=== PATIENT | female | born 1985 | race Caucasian/White ===

== ENCOUNTER 2024-07-08 08:53 | Emergency (ER) | payer OTHER, SELFPAY ==
[2024-07-08] VITALS (18 sets, daily range): BP systolic 114–172; BP diastolic 55–93; PULSE 116–143; RESP 16–36; TEMP 37.2; O2SAT 93–99; BMI 22.9
--- NOTE | 2024-07-08 09:04 | EKG_ITS ---
[address] [address] Test Date: 2024-07-08 Pat Name: Tamara Painter Department: Room: Gender: Female Professor Of Medicine: ANDRES : 1985 Requested By: Order Number: [id number] Reading MD: Joel Paredes MD Measurements Intervals [place] Rate: 120 P: 61 IN: 142 QRS: 16 QRSD: 64 T: 58 QT: 318 QTc: 449 Interpretive Statements Sinus tachycardia Biatrial enlargement Cannot rule out Anterior infarct , age undetermined NO PRIOR TRACING Electronically Signed On 07-08-2024 12:04:01 PST by Joel Paredes MD
--- NOTE | 2024-07-08 09:31 | DI.MRI.S_ITS ---
PROCEDURE: MR CERVICAL SPINE WO/W CON INDICATIONS: intractable DURAN, severe neck pain, cervical epidural recently TECHNIQUE: Noncontrast sagittal T1 spin echo and T2 fast spin echo, sagittal STIR, foraminal oblique sagittal T2 fast spin echo, axial gradient echo or T2 fast spin echo through the cervical spine. After the administration of contrast, axial and sagittal T1 spin echo with fat saturation through the cervical spine. COMPARISON: [facility], MR, MR HEAD/BRAIN WO/W CON, 07/08/2024, 10:09. [facility], MR, MR CERVICAL SPINE WITH/WITHOUT CONTRAST, 02/19/2024, 14:21. FINDINGS: Image quality: Diagnostic, with note made of motion artifact. Alignment and curvature: There is normal bony alignment. Marrow: There is stable abnormal marrow signal seen within the posterior superior aspect of the C4 vertebral body, with mild enhancement. No significant change can be seen compared to the prior MRI. No additional focal marrow signal abnormality can be seen. Spinal cord: Visualized spinal cord has normal size and signal. No cerebellar tonsillar herniation. No abnormal intramedullary enhancement. Paraspinous soft tissues: No paravertebral masses or suspicious enhancement. C2-3: Normal appearance. C3-4: The disc height and disk signal are well-preserved. Mild disc osteophyte complex is seen, which is eccentric to the left. There is mild left-sided and no right-sided neural foraminal narrowing. No central canal narrowing is seen. When comparison is made with the prior images, these findings are similar. C4-5: The disc height and disk signal are relatively well-preserved. A mild degree of generalized disc osteophyte complex is seen. There is mild right-sided and moderate left-sided facet hypertrophy. Mild bilateral neural foraminal narrowing is seen. Mild central canal narrowing is seen. No significant change from the prior. C5-6: Normal appearance. C6-7: Level within normal limits. C7-T1: The disc height and disk signal are well-preserved. A mild degree of generalized disc osteophyte complex is seen. There is mild right-sided and moderate left-sided facet hypertrophy. There is moderate left-sided and no right-sided neural foraminal narrowing. No central canal narrowing is seen. Stable from the prior study. IMPRESSION: No abnormal white marrow signal can be seen. No abnormal enhancement is seen. Cervical spine degenerative changes are seen, which are similar to the prior. The previously seen straightening of the normal cervical lordosis has now relaxed and the bony alignment is considered to be within normal limits. There is stable abnormal marrow signal within the C4 vertebral body. The imaging appearance is nonspecific, although please consider an atypical vertebral body hemangioma. Dictated by: Duran Fink M.D. on 07/08/2024 at 10:30 Approved by: Duran Fink M.D. on 07/08/2024 at 10:36
--- NOTE | 2024-07-08 09:31 | DI.MRI.S_ITS ---
PROCEDURE: MR HEAD/BRAIN WO/W CON INDICATIONS: intractable headache, pupil changes, h/o br CA, neurofibroma TECHNIQUE: Noncontrast axial T1 spin echo, axial T2 fast spin echo, sagittal and axial FLAIR, coronal T2 fast spin echo, axial gradient echo, axial diffusion and ADC through the brain. After the administration of contrast, axial and coronal and sagittal 3D VIBE or T1 spin echo with fat saturation through the brain. COMPARISON: [facility], MR, MR CERVICAL SPINE WITH/WITHOUT CONTRAST, 02/19/2024, 14:21. [facility], MR, MR CERVICAL SPINE WO/W CON, 07/08/2024, 10:09. FINDINGS: Image quality: This examination is limited by involuntary motion artifact. CSF Spaces: Basal cisterns are patent. No extra-axial fluid collections. Ventricles are normal in size and shape. Brain: There is abnormal signal seen within the corpus callosum, with abnormal white matter lesions, which are best seen on series 6, image 14, involving the body and the splenium of the corpus callosum. These areas do not enhance. Low signal can be seen on T1 weighted imaging within these areas. No other definite white matter lesions are seen. The brainstem and the cerebellum are within normal limits. No midline shift. No intracranial bleeds or masses. No abnormal intracranial enhancement. Diffusion-weighted images demonstrate no acute infarct. No chronic ischemic insults. Normal intravascular flow voids are present. Skull and face: Calvarial marrow is normal in signal. Orbits appear normal. Sinuses: Sinuses and mastoids appear clear. IMPRESSION: Abnormal signal seen within the corpus callosum, yet without abnormal enhancement. Given the appearance of the lesions and the age and gender of the patient, these are suspicious for a demyelinating process, including multiple sclerosis. No abnormal enhancement is seen. Dictated by: Duran Fink M.D. on 07/08/2024 at 10:36 Approved by: Duran Fink M.D. on 07/08/2024 at 10:39
--- NOTE | 2024-07-08 09:34 | ED_ITS ---
HPI - Headache General Chief Complaint: Headache Stated Complaint: Migraine Time Seen by Provider: 07/08/24 09:03 History of Present Illness HPI Narrative: 38-year-old woman presents complaining of intractable headache that she feels this is severe migraine. 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 She describes perhaps 1 headache free day per month. She has lost weight she continues to vomit she is having trouble with activities of daily living and has transportation issues, she is concerned that she has not safe to drive herself with her pain levels. She has not describing any acute vision changes and does not describe significant photosensitivity. No abdominal pain. No complaints of extremity paresthesia or localized weakness, global weakness is noted. Related Data Previous Rx's Medication Instructions Recorded amitriptyline 25 mg tablet 25 mg PO BEDTIME #60 tabs 07/08/24 Review of Systems Review of Systems Narrative: Pertinent positive and negative findings as per HPI Patient History Medical History (Updated 07/08/24 @ 13:24 by Laurel Fonseca MD) Chronic headache Neurofibromatosis Breast cancer Social History Smoking Status: Current some day smoker Smoking Status: Current some day smoker Exam Initial Vital Signs Initial Vital Signs: Vital Signs Pulse Rate 135 H 07/08/24 08:58 Blood Pressure 161/93 H 07/08/24 08:58 Pulse Oximetry 97 07/08/24 08:58 General: Chronically and acutely ill appearing 38-year-old woman, much older than stated age. HEENT: Dry mucous membranes, unremarkable sclera, right pupil is more dilated than the left and minimally reactive. No acute visual changes Neck: Tenderness along the entire cervical spine and pain is significant enough that forward flexion is not possible Respiratory: Lungs are clear to auscultation, no wheezing no rales no rhonchi. Full and symmetrical air movement Cardiac: Significant tachycardia without murmur Abdomen: Soft, mild diffuse tenderness without any localizing findings. No flank pain Skin: Pale, overall perfusion is poor, scattered neurofibromas appreciated Neurologic: Anisocoria, severe neck pain, no extremity weakness or other localizing symptoms Extremities: Overall poorly perfused Psych: Cooperative, very anxious Course Orders Ordered: ED Orders 07/08/24 09:04 EKG-12 Lead Stat 07/08/24 09:05 CRP [C-Reactive Protein Quant] Stat Complete Blood Count AUTO DIFF Stat Comprehensive Metabolic Panel Stat Erythrocyte Sedimentation Rate Stat Lactate (Lactic Acid) Urgent 07/08/24 09:31 MR cervical spine wo/w con Stat MR head/brain wo/w con Stat 07/08/24 09:37 Ictotest Urine Stat Urinalysis and Microscopic Stat Urine Culture Stat Lorazepam (Lorazepam 2 Mg/Ml Inj) 1 mg IV NOW PRN PRN Reason: anxiety' Discontinued Medications Dexamethasone (Dexamethasone 10 Mg/Ml Vial) 10 mg IV NOW ONE Stop: 07/08/24 09:32 Last Admin: 07/08/24 10:06 Dose: 10 mg Documented By: CTS Diphenhydramine HCl (Diphenhydramine 50 Mg/Ml Vial) 25 mg IV NOW ONE Stop: 07/08/24 09:32 Last Admin: 07/08/24 10:06 Dose: 25 mg Documented By: CTS Sodium Chloride (Normal Saline 0.9%) 1,000 mls @ 1,000 mls/hr IV BOLUS ONE Stop: 07/08/24 10:30 Last Infusion: 07/08/24 11:14 Dose: 1,000 mls/hr Documented By: Infusion: 07/08/24 10:07 Dose: 0 mls/hr Documented By: Admin: 07/08/24 10:06 Dose: 1,000 mls/hr Documented By: CTS Lorazepam (Lorazepam 2 Mg/Ml Inj) 1 mg IV NOW ONE Stop: 07/08/24 09:44 Last Admin: 07/08/24 10:06 Dose: 1 mg Documented By: CTS Prochlorperazine (Prochlorperazine 10 Mg/2 Ml Vial) 10 mg IV NOW ONE Stop: 07/08/24 09:32 Last Admin: 07/08/24 10:05 Dose: 10 mg Documented By: CTS Vital Signs Vital signs: Vital Signs - 8 hr 07/08/24 08:58 07/08/24 08:58 07/08/24 09:00 Temperature Pulse Rate 135 H Respiratory Rate Blood Pressure 161/93 H 150/83 H Pulse Oximetry 97 Oxygen Delivery Method 07/08/24 09:00 07/08/24 09:01 07/08/24 09:30 Temperature 98.9 F Pulse Rate 133 H 135 H 143 H Respiratory Rate 20 36 H Blood Pressure 150/83 H Pulse Oximetry 98 99 Oxygen Delivery Method Room Air 07/08/24 09:34 07/08/24 09:35 07/08/24 09:35 Temperature Pulse Rate 135 H 134 H Respiratory Rate 31 H 28 H Blood Pressure 161/83 H Pulse Oximetry 97 Oxygen Delivery Method 07/08/24 10:00 07/08/24 10:01 07/08/24 10:01 Temperature Pulse Rate 137 H 131 H Respiratory Rate 16 23 Blood Pressure 172/82 H Pulse Oximetry 97 97 Oxygen Delivery Method 07/08/24 10:05 07/08/24 11:09 07/08/24 11:11 Temperature Pulse Rate 135 H 120 H Respiratory Rate Blood Pressure 170/81 H 123/68 Pulse Oximetry 97 Oxygen Delivery Method 07/08/24 11:11 07/08/24 11:30 07/08/24 11:30 Temperature Pulse Rate 121 H 121 H Respiratory Rate Blood Pressure 114/55 L Pulse Oximetry 94 93 Oxygen Delivery Method 07/08/24 12:00 07/08/24 12:00 07/08/24 12:30 Temperature Pulse Rate 116 H Respiratory Rate Blood Pressure 119/69 125/65 Pulse Oximetry 95 Oxygen Delivery Method 07/08/24 12:30 Temperature Pulse Rate 120 H Respiratory Rate Blood Pressure Pulse Oximetry 95 Oxygen Delivery Method Room Air MDM - Headache Lab Data 07/08/24 09:05 07/08/24 09:05 Labs: Lab Results 07/08/24 07/08/24 Range/Units 09:05 09:37 WBC 9.1 (4.5-11.0) X10^3/uL RBC 5.05 (4.0-5.2) X10^6/uL Hgb 15.6 (12.0-16.0) g/dL Hct 45.5 (36-46) % MCV 90.1 (80-100) fL MCH 30.9 (26-34) PG MCHC 34.3 (30-36) % RDW 13.2 (11.6-14.8) % Plt Count 350 (150-400) X10^3/uL Neut % (Auto) 80.3 H (50-75) % Lymph % (Auto) 9.8 L (25-40) % [place] % (Auto) 7.2 (3-14) % Eos % (Auto) 1.6 L (2-4) % Baso % (Auto) 1.1 (0-2) % Neut # (Auto) 7300 H (9542-1909) /uL Lymph # (Auto) 900 L (5401-7747) /uL [place] # (Auto) 700 (0-900) /uL Eos # (Auto) 100 (0-450) /uL Baso # (Auto) 100 (0-100) /uL ESR 3 (0-20) MM/HR Sodium 138 (137-145) mmol/L Potassium 4.6 (3.4-5.1) mmol/L Chloride 104 (98-107) mmol/L Carbon Dioxide 25 (22-32) mmol/L BUN 12 (7-17) mg/dL Creatinine 0.65 (0.52-1.04) mg/dL Estimated GFR > 60 (>60) mL/min BUN/Creatinine Ratio 18.5 (6-22) Glucose 115 H (70-100) mg/dL Lactate 1.4 (0.7-2.1) mmol/L Calcium 9.2 (8.4-10.2) mg/dL Total Bilirubin 0.8 (0.2-1.3) mg/dL AST 40 H (14-36) IU/L ALT 30 (<35) IU/L Alkaline Phosphatase 74 (38-126) U/L C-Reactive Protein < 0.5 (<1.0) mg/dL Total Protein 8.0 (6.3-8.2) g/dL Albumin 5.0 (3.5-5.0) g/dL Globulin 3.0 (1.7-4.1) g/dL Albumin/Globulin Ratio 1.7 (1.0-2.8) Urine Color Yellow Urine Appearance Sl cloudy Urine pH 6.0 (4.5-8.0) Ur Specific [place] >=1.030 H (1.000-1.035) Urine Protein 1+ H (Negative) Urine Glucose (UA) Negative (Negative) g/dL Urine Ketones Trace H (NEGATIVE) Urine Occult Blood Negative (Negative) Urine Nitrate Negative (Negative) Urine Bilirubin 1+ H (NEGATIVE) Ur Bilirubin Confirm Negative (Negative) Urine Urobilinogen 1.0 (0.2) E.U./dL Ur Leukocyte Esterase Negative (NEGATIVE) Urine RBC None seen (0-5/HPF) Urine WBC 5-10/hpf H (0-5/HPF) Ur Squamous Epith Cells 5-10 /hpf H (0-5/HPF) Urine Bacteria None seen (None) Ur Culture Indicated? Specimen cultured Vol Urine Centrifuged 10ml (spun) Point of Care Testing Test Results Negative Urine Dip Bedside Urine Glucose Negative Bedside Urine Bilirubin - Negative Bedside Urine Ketone - Negative Urine Specific [place] 1.030 Bedside Urine Occult Blood +/- Bedside Urine pH 6.0 Bedside Urine Protein + 30 Bedside Urine Urobilinogen - Negative Bedside Urine Nitrite - Negative Bedside Urine Leukocytes - Negative Esterase Imaging Data MR brain and cervical spine: Radiologist's Impression: PROCEDURE: MR HEAD/BRAIN WO/W CON INDICATIONS: intractable headache, pupil changes, h/o br CA, neurofibroma TECHNIQUE: Noncontrast axial T1 spin echo, axial T2 fast spin echo, sagittal and axial FLAIR, coronal T2 fast spin echo, axial gradient echo, axial diffusion and ADC through the brain. After the administration of contrast, axial and coronal and sagittal 3D VIBE or T1 spin echo with fat saturation through the brain. COMPARISON: [facility], MR, MR CERVICAL SPINE WITH/WITHOUT CONTRAST, 02/19/2024, 14:21. [facility], MR, MR CERVICAL SPINE WO/W CON, 07/08/2024, 10:09. FINDINGS: Image quality: This examination is limited by involuntary motion artifact. CSF Spaces: Basal cisterns are patent. No extra-axial fluid collections. Ventricles are normal in size and shape. Brain: There is abnormal signal seen within the corpus callosum, with abnormal white matter lesions, which are best seen on series 6, image 14, involving the body and the splenium of the corpus callosum. These areas do not enhance. Low signal can be seen on T1 weighted imaging within these areas. No other definite white matter lesions are seen. The brainstem and the cerebellum are within normal limits. No midline shift. No intracranial bleeds or masses. No abnormal intracranial enhancement. Diffusion-weighted images demonstrate no acute infarct. No chronic ischemic insults. Normal intravascular flow voids are present. Skull and face: Calvarial marrow is normal in signal. Orbits appear normal. Sinuses: Sinuses and mastoids appear clear. IMPRESSION: Abnormal signal seen within the corpus callosum, yet without abnormal enhancement. Given the appearance of the lesions and the age and gender of the patient, these are suspicious for a demyelinating process, including multiple sclerosis. No abnormal enhancement is seen. Dictated by: Duran Fink M.D. on 07/08/2024 at 10:36 PROCEDURE: MR CERVICAL SPINE WO/W CON INDICATIONS: intractable DURAN, severe neck pain, cervical epidural recently TECHNIQUE: Noncontrast sagittal T1 spin echo and T2 fast spin echo, sagittal STIR, foraminal oblique sagittal T2 fast spin echo, axial gradient echo or T2 fast spin echo through the cervical spine. After the administration of contrast, axial and sagittal T1 spin echo with fat saturation through the cervical spine. COMPARISON: [facility], MR, MR HEAD/BRAIN WO/W CON, 07/08/2024, 10:09. [facility], MR, MR CERVICAL SPINE WITH/WITHOUT CONTRAST, 02/19/2024, 14:21. FINDINGS: Image quality: Diagnostic, with note made of motion artifact. Alignment and curvature: There is normal bony alignment. Marrow: There is stable abnormal marrow signal seen within the posterior superior aspect of the C4 vertebral body, with mild enhancement. No significant change can be seen compared to the prior MRI. No additional focal marrow signal abnormality can be seen. Spinal cord: Visualized spinal cord has normal size and signal. No cerebellar tonsillar herniation. No abnormal intramedullary enhancement. Paraspinous soft tissues: No paravertebral masses or suspicious enhancement. C2-3: Normal appearance. C3-4: The disc height and disk signal are well-preserved. Mild disc osteophyte complex is seen, which is eccentric to the left. There is mild left-sided and no right- sided neural foraminal narrowing. No central canal narrowing is seen. When comparison is made with the prior images, these findings are similar. C4-5: The disc height and disk signal are relatively well-preserved. A mild degree of generalized disc osteophyte complex is seen. There is mild right-sided and moderate left-sided facet hypertrophy. Mild bilateral neural foraminal narrowing is seen. Mild central canal narrowing is seen. No significant change from the prior. C5-6: Normal appearance. C6-7: Level within normal limits. C7-T1: The disc height and disk signal are well-preserved. A mild degree of generalized disc osteophyte complex is seen. There is mild right-sided and moderate left- sided facet hypertrophy. There is moderate left-sided and no right-sided neural foraminal narrowing. No central canal narrowing is seen. Stable from the prior study. IMPRESSION: No abnormal white marrow signal can be seen. No abnormal enhancement is seen. Cervical spine degenerative changes are seen, which are similar to the prior. The previously seen straightening of the normal cervical lordosis has now relaxed and the bony alignment is considered to be within normal limits. There is stable abnormal marrow signal within the C4 vertebral body. The imaging appearance is nonspecific, although please consider an atypical vertebral body hemangioma. Dictated by: Duran Fink M.D. on 07/08/2024 at 10:30 MDM Narrative Medical decision making narrative: CC: Intractable headache Complicating co-morbidities: High-risk breast cancer, post mastectomy, neurofibromatosis with reports of optic nerve lesion, chronic headache with less than 1 day of headache free time per month, recent significant C-spine injection with epidural injection exacerbating all symptoms approximately 8 weeks ago, significant anxiety Data collected from: patient Social determinants of health that may influence the patients condition: Significant anxiety, sounds like her primary care physician has been working on decreasing oxycodone as well as diazepam dosing over the last year to 6 months(no acute changes in the last 1 month), transportation is difficult, childcare stressors Medical records reviewed: None available, majority of care is through [facility] Differential considered: Migraine, meningitis, intracranial tumor or mass including possibility of metastatic breast cancer or new neurofibroma, cervical spine epidural abscess Exam documented above, pertinent findings include: Anxiety, significant pain, anisocoria right pupil larger and less responsive. Tachycardic, lungs are clear she does not have an acute surgical abdomen, overall perfusion appears decreased Lab Test results independently reviewed as above. Pertinent findings: CBC shows no leukocytosis, moderate increase in neutrophils at 83%. No anemia Chemistries are unremarkable C-reactive protein is not elevated Lactic acid is not elevated Urine appears to be significantly dehydrated doubt UTI Independently reviewed EKG: Sinus tachycardia at a rate of 120. Prominent T-waves. No acute ischemia Imaging studies independently reviewed: MRI with and without of the cervical spine shows no acute findings that would exchange worsening pathology. There is a mention of a stable abnormal marrow signal within the C4 vertebral body unchanged from prior scans MRI of the brain with abnormal signal seen within the corpus callosum, with abnormal white matter lesions, which are best seen on series 6, image 14, involving the body and the splenium of the corpus callosum. These areas do not enhance. Given the appearance of the lesions and the age and gender of the patient, these are suspicious for a demyelinating process, including multiple sclerosis. Consultations: neurology. MRI studies have been pushed to , Dr Kavon Cornell. Did not feel like acute intervention was required. Not obvious diagnosostic criteria for MS, 2 abnormal non-enhancing lesions in callosum were again noted. Treatments: Compazine, Benadryl, dexamethasone, saline, Ativan Re-evaluations: Patient is re-evaluated after her MR studies. She states she is feeling much better, headache has essentially resolved. She is resting comfortably still significantly tachycardic at 133 Discussion: 38-year-old woman with multiple significant diagnosis for the age 39 including her metastatic breast cancer neurofibromatosis, chronic migraine/daily headache with minimal relief from pain, recent traumatic cervical spine injury chronic neck pain now exacerbating her headaches in today with MRI of the brain suggesting possible demyelinating process including multiple sclerosis. Her headache has improved with fluids, Compazine, Benadryl and Ativan which was used for sedation for her MR studies. She remains significantly tachycardic without evidence of infection, acute coronary syndrome, dehydration or acute anemia. Further questioning, patient notes that she is taking large amounts of [id number] medications to combat her headaches. We talked about rebound headaches in the importance of avoiding donh-hwt-ppfufal medications at this point. She is tried Topamax which was ineffective, Cymbalta caused her hair to fall out she had been seeing a headache specialist when she lived in [place] and Botox injections has been helpful. She has recently been referred to pain management clinic with no additional discussion of headaches. We talked about trying amitriptyline while also stopping all [id number] medications and she was willing to give this a try. Alternatives, benefits, risks side effects of amitriptyline reviewed in detail with the patient. She will be given copies of her MRI results to share with her primary care physician I have encouraged her to talk with her primary care physician, try the amitriptyline and ask for a referral for headache management/consultation. She is safe for discharge Discharge Plan Departure Patient Disposition: Home Clinical Impression: Chronic daily headache Migraine Qualifiers: Migraine type: chronic migraine (15 or more days per month) without aura Status migrainosus presence: with status migrainosus Intractability: not intractable Q ualified Code(s): G43.701 - Chronic migraine without aura, not intractable, with status migrainosus Instructions: DI for Migraine Activity Restrictions/Additional Instructions: Thank you for coming in today Because of severity of your headache, a full workup was done. There was no sign of bacterial infection, meningitis, sepsis. We did MRIs of your brain and cervical spine which did not show dramatic acute findings such as a tumor or neurofibroma that would need immediate attention or cause her symptoms. There was mentioned of 2 small areas in the center portion of your brain that likely have been there for an extended period of time and are incidental findings. There was a question of whether these could be concerning for multiple sclerosis. I did review the studies with Neurology specialist at the [facility]. He did not feel that your MRIs are showing multiple sclerosis. We talked about your chronic headaches. At this point you have changed from migraine headache to chronic daily headaches likely rebound headache secondary to all of the etqh-vjo-wgfyhdb medications that you are taking. I am going to suggest that you completely stop all vjir-axa-nhsyymg medications for headache treatment, you have already noticed they are not helpful. I am also going to suggest you begin a medication called amitriptyline, 25 mg about 2 hours before bed. This medication can help prevent migraines as well as treat chronic pain. It will make you sleepy which is why taking it about 2 hours before you go to sleep will prevent some of the daytime sleepiness. It will give you a dry mouth, it can increase your appetite so do be aware of that. You need to try it for full 6 weeks before you decide if it has been helpful or not Amitriptyline prescription is electronically sent to [facility] in [place]. You need to follow up with your primary care physician. If you have not yet seen a headache specialist here in [facility] for management of your headaches, I would recommend that you ask for referral to do so Make sure that you are drinking plenty of water, avoiding caffeine and sugar can all be helpful in decreasing migraine triggers If you find that you are getting worse or develop any new symptoms, please feel free to return to the emergency department for further evaluation. Prescriptions: New amitriptyline 25 mg tablet 25 mg PO BEDTIME Qty: 60 0RF Referrals: ProviderAmmy [Primary Care Provider] - Stand Alone Forms: Patient Portal/API/Survey
[2024-07-08 09:48] LABS: Add Manual Diff / Slide Review NO; Basophils Absolute Auto 100 /uL (0-100); Basophils Percent Auto 1.1 % (0-2); Eosinophils Absolute Auto 100 /uL (0-450); Eosinophils Percent Auto 1.6 % (2-4); Hematocrit 45.5 % (36-46); Hemoglobin 15.6 g/dL (12.0-16.0); Lymphocytes Absolute Auto 900 /uL (1100-4500); Lymphocytes Percent Auto 9.8 % (25-40); Mean Corpuscular HGB Conc 34.3 % (30-36); Mean Corpuscular Hemoglobin 30.9 PG (26-34); Mean Corpuscular Volume 90.1 fL (80-100); Monocytes Absolute Auto 700 /uL (0-900); Monocytes Percent Auto 7.2 % (3-14); Neutrophils Absolute Auto 7300 /uL (1500-7000); Neutrophils Percent Auto 80.3 % (50-75); Platelet Count 350 X10^3/uL (150-400); Red Blood Cell Count 5.05 X10^6/uL (4.0-5.2); Red Cell Distribution Width 13.2 % (11.6-14.8); White Blood Cell Count 9.1 X10^3/uL (4.5-11.0)
[2024-07-08 09:49] LABS: Appearance Urine UA SL CLOUDY; Bilirubin Urine UA 1+ (NEGATIVE); Color Urine UA YELLOW; Glucose Urine UA NEGATIVE (Negative); Ketones Urine UA TRACE (NEGATIVE); Leukocyte Esterase Urine UA NEGATIVE (NEGATIVE); Nitrite Urine UA NEGATIVE (Negative); Occult Blood Urine UA NEGATIVE (Negative); Protein Urine UA 1+ (Negative); Specific Gravity Urine UA >=1.030 (1.000-1.035)
[2024-07-08 09:54] LABS: Lactate (Lactic Acid) 1.4 mmol/L (0.7-2.1)
[2024-07-08 09:56] LABS: Ictotest Urine Negative (Negative); Urine Volume 10mL (spun)
[2024-07-08 09:56] LABS: Alanine Aminotransferase 30 IU/L (<35); Albumin Globulin Ratio 1.7 (1.0-2.8); Alkaline Phosphatase 74 U/L (38-126); Aspartate Aminotransferase 40 IU/L (14-36); BUN Creatinine Ratio 18.5 (6-22); Bilirubin Total 0.8 mg/dL (0.2-1.3); Blood Urea Nitrogen 12 mg/dL (7-17); C-Reactive Protein Quant < 0.5 mg/dL (<1.0); Calcium 9.2 mg/dL (8.4-10.2); Carbon Dioxide 25 mmol/L (22-32); Chloride 104 mmol/L (98-107); Estimated Glomerular Filt Rate > 60 mL/min (>60); Glucose 115 mg/dL (70-100); HEMOLYSIS 21 (0-50); Potassium 4.6 mmol/L (3.4-5.1); Sodium 138 mmol/L (137-145)
[2024-07-08 09:57] LABS: Bacteria Urine None Seen; Culture Indicated Urine Specimen Cultured; RBC Urine None Seen (0-5/HPF); Squamous Epithelial Cell Urine 5-10 /HPF (0-5/HPF); WBC Urine 5-10/HPF (0-5/HPF)
[2024-07-08] MEDS: PROCHLORPERAZINE 10 MG/2 ML VIAL IV (10:05)
[2024-07-08] MEDS: SODIUM CHLORIDE 0.9% 1,000 ML 1000 ML IV (10:06)
[2024-07-08] MEDS: LORazepam 2 MG/ML INJ 1 MG IV (10:06)
[2024-07-08] MEDS: diphenhydrAMINE 50 MG/ML VIAL 25 MG IV (10:06)
[2024-07-08] MEDS: DEXAMETHASONE 10 MG/ML VIAL IV (10:06)
[2024-07-08 10:10] LABS: Erythrocyte Sedimentation Rate 3 MM/HR (0-20)
--- NOTE | 2024-07-08 10:14 | PC.NURSE ---
Pt off floor at this time for MRI. fluids paused.
== END 2024-07-08 15:59 | disposition home or self-care (01) ==
PROVIDERS: Emergency Provider Emergency Medicine; Referring Provider Emergency Medicine
DX: G43.701 Chronic migraine without aura, not intractable, with status migrainosus (principal)
CPT/HCPCS: 70553; 72156; 80053; 81001; 81003; 81025; 83605; 85025; 85651; 86140; 87086; 93005; 93010; 96361; 96374; 96375; 99284; A9579; J0780; J1100; J1200; J2060

== ENCOUNTER 2024-12-19 20:19 | Emergency (ER) | payer OTHER, SELFPAY ==
[2024-12-19 20:35] VITALS: BP 137/94; PULSE 125; RESP 14; TEMP 36.5; O2SAT 98; BMI 24.0
[2024-12-19 21:08] LABS: Bacteria Urine Few (2-10); Culture Indicated Urine Cult Not Indicated; Mucus Urine 2+ (Negative); RBC Urine 0-1/HPF (0-5/HPF); Squamous Epithelial Cell Urine 1-5 /HPF (0-5/HPF); Urine Volume 10mL (spun); WBC Urine 0-1/HPF (0-5/HPF)
--- NOTE | 2024-12-19 21:59 | ED_ITS ---
HPI - Headache General Chief Complaint: Headache Stated Complaint: Headache, Bilateral Shoulder Pain Time Seen by Provider: 12/19/24 20:33 Mode of arrival: Ambulatory History of Present Illness HPI Narrative: 39-year-old female history of breast cancer double double mastectomy 2020 with high recurrence for cancer will be restarted on radiation, history of neurofibromatosis with known optic nerve lesion, spinal cervical surgery which had led to worsening chronic migraine, has had intractable migraines intermittently for which she has been using marijuana to relieve the pain but worse today. Patient denies fever, chills, stiff neck, rash, chest pain, short ness of breath, blurred vision, lights and sounds do not bother. Other than what is stated 14 point review of system is negative Related Data Previous Rx's ?Medication ?Instructions ?Recorded amitriptyline 25 mg tablet 25 mg PO BEDTIME #60 tabs 0 07/08/24 [id number]-[id number]-[id number] 1 cap PO Q6H PRN anna n #30 caps 12/19/24 50 mg-300 mg-40 mg capsule (Fioricet) Allergies Allergy/AdvReac Type Severity Reaction Status Date / Time No Known Drug Allergies Allergy Verified 12/19/24 21:08 Review of Systems Review of Systems ROS Unobtainable: All systems reviewed & are unremarkable except as noted in HPI and below Patient History Medical History (Updated 12/19/24 @ 23:04 by Joel Connor, DO) Chronic headache Neurofibromatosis Breast cancer Social History Smoking Status: Unknown if ever smoked Smoking Status: Unknown if ever smoked Exam Narrative Exam Narrative: GENERAL: [39] year old patient appears stated age. Well-developed patient, in mild distress. HEAD: Atraumatic. Normocephalic. EYES: Pupils equal round and reactive. Extraocular motions intact. No scleral icterus. No injection or drainage. ENT: Nose without bleeding, purulent drainage. Throat without erythema, tonsillar hypertrophy or exudate. Airway patent. NECK: Trachea midline. Non tender CARDIOVASCULAR: Regular rate and rhythm without murmurs, gallops, or rubs. RESPIRATORY: Clear to auscultation. Breath sounds equal bilaterally. No wheezes, rales, or rhonchi. GASTROINTESTINAL: Abdomen soft, non-tender, nondistended. EXTREMITIES: No edema or joint tenderness. BACK: Nontender without deformity or crepitance. No flank tenderness. NEURO: AOx3. GCS 15. Nonfocal neuro exam SKIN: No rash or erythema of visible areas Initial Vital Signs Initial Vital Signs: Vital Signs Temperature 97.7 F 12/19/24 20:35 Pulse Rate 125 H 12/19/24 20:35 Respiratory Rate 14 12/19/24 20:35 Blood Pressure 137/94 H 12/19/24 20:35 Pulse Oximetry 98 12/19/24 20:35 Oxygen Delivery Method Room Air 12/19/24 20:35 Course Orders Ordered: ED Orders 12/19/24 20:35 Urine Microscopic Stat Lactated Ringer's (Lactated Ringers) 1,000 mls @ 1,000 mls/hr IV BOLUS ONE Stop: 12/19/24 22:58 Vital Signs Vital signs: Vital Signs - 8 hr 12/19/24 20:35 Temperature 97.7 F Pulse Rate 125 H Respiratory Rate 14 Blood Pressure 137/94 H Pulse Oximetry 98 Oxygen Delivery Method Room Air MDM - Headache Lab Data Labs: Lab Results 12/19/24 Range/Units 20:35 Urine RBC 0-1/hpf (0-5/HPF) Urine WBC 0-1/hpf (0-5/HPF) Ur Squamous Epith Cells 1-5 /hpf (0-5/HPF) Urine Bacteria Few (2-10) H (None) Urine Mucus 2+ H (Negative) Ur Culture Indicated? Cult not indicated Vol Urine Centrifuged 10ml (spun) Point of Care Testing Test Results Negative Urine Dip Bedside Urine Glucose Negative Bedside Urine Bilirubin - Negative Bedside Urine Ketone - Negative Urine Specific [place] 1.030 Bedside Urine Occult Blood - Negative Bedside Urine pH 6.0 Bedside Urine Protein +/- 15 Bedside Urine Urobilinogen - Negative Bedside Urine Nitrite - Negative Bedside Urine Leukocytes +/- 15 Esterase MDM Narrative Medical decision making narrative: Vital signs, nurse triage note, medication list, previous ER visits, and all imaging studies reviewed. Patient given fluids Toradol droperidol Benadryl here and on reexamination is sleeping and resting comfortably. DC home on Fioricet rx. Differential diagnosis includes chronic pain, migraine, viral. Return with new or worsening symptoms and keep hydrated. Discharge Plan Departure Patient Disposition: Home Clinical Impression: Migraine Qualifiers: Migraine type: chronic migraine (15 or more days per month) without aura Status migrainosus presence: without status migrainosus Intractability: intractable Qualified Code(s): G43.719 - Chronic migraine without aura, intractable, without status migrainosus Instructions: DI for Migraine Activity Restrictions/Additional Instructions: Return with new or worsening symptoms. Take your medicine as directed. Follow up PCP in 1-2 weeks if no improvement in symptoms. Prescriptions: New sycrleapvd-qkwrucanvhtep-gehn [Fioricet] 50-300-40 mg capsule 1 cap PO Q6H PRN (Reason: pain) Qty: 30 0RF No Action amitriptyline 25 mg tablet 25 mg PO BEDTIME Qty: 60 0RF Referrals: ProviderAmmy [Primary Care Provider, Family Practice] Stand Alone Forms: Patient Portal/API
[2024-12-19] MEDS: LACTATED RINGERS 1,000 ML 1000 ML IV (22:06)
[2024-12-19] MEDS: diphenhydrAMINE 50 MG/ML VIAL IV (22:06)
[2024-12-19] MEDS: droPERidol 2.5 MG/ML VIAL IV (22:07)
[2024-12-19] MEDS: KETOROLAC 30 MG/ML VIAL IV (22:09)
[2024-12-19 23:13] VITALS: BP 113/68; PULSE 110; RESP 17; O2SAT 98
== END 2024-12-19 23:15 | disposition home or self-care (01) ==
PROVIDERS: Emergency Provider Family Medicine
DX: G43.719 Chronic migraine without aura, intractable, without status migrainosus (principal)
CPT/HCPCS: 81003; 81015; 81025; 96361; 96374; 96375; 99283; 99284; J1200; J1790; J1885

== ENCOUNTER 2025-01-02 13:40 | Emergency (ER) | payer OTHER, SELFPAY ==
[2025-01-02 14:41] VITALS: BP 140/84; PULSE 126; RESP 18; TEMP 36.1; O2SAT 99; BMI 24.0
[2025-01-02 18:10] VITALS: BP 142/88; PULSE 116; RESP 22; TEMP 36.4
[2025-01-02] MEDS: KETOROLAC 30 MG/ML VIAL IM (19:00)
[2025-01-02] MEDS: METOCLOPRAMIDE HCL 5 MG TABLET 10 MG PO (19:01)
[2025-01-02] MEDS: diphenhydrAMINE 25 MG TABLET PO (19:01)
[2025-01-02] MEDS: ACETAMINOPHEN 325 MG TABLET 975 MG PO (19:01)
--- NOTE | 2025-01-03 11:18 | ED_ITS ---
HPI - Recheck/Abnormal Lab/Rx General Chief Complaint: Recheck/Abnormal Lab/Rx Stated Complaint: Neck, back , wrists pain Time Seen by Provider: 01/02/25 18:22 Source: patient Mode of arrival: Ambulatory History of Present Illness HPI narrative: 39-year-old female with past medical history neurofibromatosis, status post double mastectomy for breast cancer, status post spinal cervical surgery, migraines, fibromyalgia presents to the ED with an acute flare-up of headache, neck pain, shoulder pain. Patient states that the nature of the headache is the same as prior headaches, that her neck and shoulder pain are consistent with her fibromyalgia flare-ups. No changes in vision. Gait is normal. Patient states that she was seen in the ED on 12/19/2024 and was given Fioricet and amitriptyline, which she says makes her too sleepy and tired. No fever, chills, chest pain, shortness of breath, nausea, vomiting, abdominal pain, lightheadedness, dizziness, syncope. Related Data Previous Rx's ?Medication ?Instructions ?Recorded amitriptyline 25 mg tablet 25 mg PO BEDTIME #60 tabs 0 07/08/24 [id number]-hkwvnorpksakz-zhtfqafj 1 cap PO Q6H PRN anna n #30 caps 12/19/24 50 mg-300 mg-40 mg capsule (Fioricet) Allergies Allergy/AdvReac Type Severity Reaction Status Date / Time No Known Drug Allergies Allergy Verified 01/02/25 18:59 Review of Systems Constitutional Constitutional: Denies chills, Denies fatigue, Denies fever(s), Denies frequent falls, Reports headache(s), Denies lethargy and Denies weakness Eyes Eyes: Denies change in vision, Denies eye discharge, Denies irritation and Denies loss of vision ENT Ears, Nose, Mouth, and Throat: Denies change in voice, Denies dizziness, Reports headache(s), Reports neck pain, Denies sore throat and Denies throat swelling Cardiovascular Cardiovascular: Denies chest pain, Denies irregular heart rhythm, Denies lightheadedness, Denies palpitations, Denies dyspnea, Denies dyspnea on exertion and Denies orthopnea Respiratory Respiratory: Denies cough, Denies dyspnea, Denies dyspnea on exertion and Denies wheezing Gastrointestinal Gastrointestinal: Denies abdominal pain, Denies change in bowel habits, Denies diarrhea, Denies nausea and Denies vomiting Musculoskeletal Musculoskeletal: Reports neck pain and Denies numbness Comments: shoulder pain Integumentary/Breasts Skin/Breast: Denies pruritus, Denies erythema, Denies rash and Denies wounds Neurologic Neurologic: Denies behavioral changes, Denies confusion, Denies dizziness, Denies frequent falls, Reports headache(s), Denies loss of vision, Denies numbness and Denies weakness Psychiatric Psychiatric: Denies anxiety, Denies behavioral changes, Denies confusion, Denies depression, Denies homicidal ideation and Denies suicidal ideation Endocrine Endocrine: Denies fatigue, Denies flushing and Denies palpitations Hematologic/Lymphatic Hematologic/Lymphatic: Denies easy bruising Allergic/Immunologic Allergic/Immunologic: Denies urticaria, Denies throat swelling and Denies wheezing Patient History Medical History Chronic headache Neurofibromatosis Breast cancer Exam Narrative Exam Narrative: Const General:?cooperative, healthy appearing and comfortable [facility] Head:?normal to inspection Ears:?hearing grossly normal bilaterally Nose:?external nose normal Face and sinus:?normal facial exam and sinuses nontender Mouth:?oral mucosae normal Throat:?posterior oropharynx normal Eyes General:?appearance normal, both eyes and all related structures Neck Neck:?normal visual inspection and no lymphadenopathy noted Resp Effort & Inspection:?normal respiratory effort Auscultation:?clear to auscultation bilaterally Cardio Rate:?regular rate Rhythm:?regular rhythm Neuro General:?patient alert, patient awake and patient oriented x3; PERRLA; gait normal; neurologically intact Initial Vital Signs Initial Vital Signs: Vital Signs Temperature 97.0 F L 01/02/25 14:41 Pulse Rate 126 H 01/02/25 14:41 Respiratory Rate 18 01/02/25 14:41 Blood Pressure 140/84 01/02/25 14:41 Pulse Oximetry 99 01/02/25 14:41 Oxygen Delivery Method Room Air 01/02/25 14:41 Course Orders Ordered: Discontinued Medications Acetaminophen (Acetaminophen 325 Mg Tablet) 975 mg PO NOW ONE Stop: 01/02/25 18:43 Last Admin: 01/02/25 19:01 Dose: 975 mg Documented By: IF Diphenhydramine HCl (Diphenhydramine 25 Mg Tablet) 25 mg PO NOW ONE Stop: 01/02/25 18:43 Last Admin: 01/02/25 19:01 Dose: 25 mg Documented By: IF Ketorolac Tromethamine (Ketorolac 30 Mg/Ml Vial) 30 mg IM NOW ONE Stop: 01/02/25 18:43 Last Admin: 01/02/25 19:00 Dose: 30 mg Documented By: IF Metoclopramide HCl (Metoclopramide Hcl 5 Mg Tablet) 10 mg PO NOW ONE Stop: 01/02/25 18:43 Last Admin: 01/02/25 19:01 Dose: 10 mg Documented By: IF MDM - Recheck/Abnormal Lab/Rx MDM Narrative Medical decision making narrative: 39-year-old female with past medical history neurofibromatosis, status post double mastectomy for breast cancer, status post spinal cervical surgery, migraines, fibromyalgia presents to the ED with an acute flare-up of headache, neck pain, shoulder pain. Patient is neurologically intact on exam. Treated headache with Toradol, Tylenol, Reglan, Benadryl with good relief. Recommend patient continue Tylenol, ibuprofen at home. Recommend follow-up with her PCP and other specialists as soon as possible. ED return precautions were discussed with patient. Patient verbalized understanding. Medical records reviewed: Yes Discharge Plan Departure Patient Disposition: Home Clinical Impression: Headache Qualifiers: Headache type: unspecified Headache chronicity pattern: unspecified pattern Intractability: not intractable Qualified Code(s): R51.9 - Headache, unspecified Activity Restrictions/Additional Instructions: Were evaluated in the emergency department for a headache. You were given Tylenol, Toradol, Benadryl, Reglan. Please continue taking Tylenol, ibuprofen at home. Please follow-up with your primary care provider as soon as possible for further evaluation and treatment. Return to the ED if you have worsening symptoms, uncontrolled vomiting. Prescriptions: No Action amitriptyline 25 mg tablet 25 mg PO BEDTIME Qty: 60 0RF [id number]-[id number] [Fioricet] 50-300-40 mg capsule 1 cap PO Q6H PRN (Reason: pain) Qty: 30 0RF Referrals: ProviderAmmy [Primary Care Provider, Family Practice] Stand Alone Forms: Patient Portal/API
== END 2025-01-02 19:33 | disposition home or self-care (01) ==
PROVIDERS: Emergency Provider Student in an Organized Health Care Education/Training Program
DX: R51.9 Headache, unspecified (principal); M54.2 Cervicalgia; Z85.3 Personal history of malignant neoplasm of breast
CPT/HCPCS: 96372; 99283; J1885

== ENCOUNTER 2025-01-07 19:27 | Emergency (ER) | payer OTHER, SELFPAY ==
[2025-01-07 19:31] VITALS: BP 135/91; PULSE 123; RESP 18; TEMP 36.3; O2SAT 100
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
[2025-01-07] MEDS: DEXAMETHASONE 10 MG/ML VIAL IV (21:45)
[2025-01-07] MEDS: KETOROLAC 30 MG/ML VIAL 15 MG IV (21:45)
[2025-01-07] MEDS: METOCLOPRAMIDE 10 MG/2 ML INJ IV (21:45)
[2025-01-07] MEDS: SODIUM CHLORIDE 0.9% 1,000 ML 1000 ML IV (21:46)
[2025-01-07] MEDS: diphenhydrAMINE 50 MG/ML VIAL IV (21:46)
[2025-01-07 21:54] VITALS: PULSE 108; O2SAT 97
[2025-01-07 21:55] VITALS: BP 138/79; PULSE 108; O2SAT 100
[2025-01-07 22:00] VITALS: BP 151/67; PULSE 104; O2SAT 100
[2025-01-07 22:30] VITALS: O2SAT 92
[2025-01-07 22:31] VITALS: BP 124/63; PULSE 100; O2SAT 100
[2025-01-08 00:22] VITALS: PULSE 90; RESP 16; O2SAT 100
[2025-01-08 00:23] VITALS: BP 127/72; PULSE 116; O2SAT 98
== END 2025-01-08 01:20 | disposition home or self-care (01) ==
PROVIDERS: Emergency Provider Emergency Medicine
DX: R51.9 Headache, unspecified (principal); F43.11 Post-traumatic stress disorder, acute; Q85.01 Neurofibromatosis, type 1; M54.2 Cervicalgia
CPT/HCPCS: 96361; 96374; 96375; 99283; 99284; J1100; J1200; J1885; J2765

== ENCOUNTER 2025-01-16 17:22 | Emergency (ER) | payer OTHER, SELFPAY ==
[2025-01-16 17:27] VITALS: BP 156/83; PULSE 106; RESP 16; TEMP 36.5; O2SAT 100; BMI 25.7
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
[2025-01-16] MEDS: diphenhydrAMINE 50 MG/ML VIAL IM (23:44)
[2025-01-16] MEDS: KETOROLAC 30 MG/ML VIAL IM (23:45)
[2025-01-17 00:16] LABS: UR Morphine/Opiate cutoff 300 Negative (Negative); Ur Specific Gravity Normal (Normal); Urine MDMA Negative (Negative); Urine Methamphetamines Negative (Negative); Urine Tetrahydrocannabinol Positive (Negative); Urine Tricyclic Antidepressant Negative (Negative)
[2025-01-17 00:20] LABS: Ethanol (ETOH) < 10 mg/dL (<10)
[2025-01-17 00:47] VITALS: BP 146/80; PULSE 96; RESP 18; O2SAT 100
== END 2025-01-17 00:48 | disposition home or self-care (01) ==
PROVIDERS: Emergency Provider Emergency Medicine
DX: F43.10 Post-traumatic stress disorder, unspecified (principal); R51.9 Headache, unspecified; Q85.01 Neurofibromatosis, type 1; F10.90 Alcohol use, unspecified, uncomplicated
CPT/HCPCS: 80305; 80320; 96372; 99283; J1200; J1885